=== PATIENT | female | born 2000 | race African-American/Black ===

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

== ENCOUNTER 2019-04-29 16:16 | Emergency (ER) | payer OTHER | END 2019-04-29 17:07 | disposition home or self-care (01) | LOC: BURERS 16:16 | DX: J11.1 Influenza due to unidentified influenza virus with other respiratory manifestations (principal) | CPT/HCPCS: 99281 ==

== ENCOUNTER 2020-01-09 16:15 | Emergency (ER) | payer OTHER ==
[2020-01-09] MEDS ORDERED: Ibuprofen 800 MG TAB ONE (16:47)
[2020-01-10 12:46] LABS: SARS-CoV-2 MS2 Positive; SARS-CoV-2 N Gene Negative; SARS-CoV-2 S Gene Negative; SARS-CoV-2 by NAA Not Detected (NotDetected); SARS-CoV-2 orf1ab Negative
== END 2020-01-09 17:18 | disposition home or self-care (01) ==
LOC: BURERS 16:15
DX: J02.9 Acute pharyngitis, unspecified (principal); Z20.828 Contact with and (suspected) exposure to other viral communicable diseases; M41.9 Scoliosis, unspecified
CPT/HCPCS: 87081; 87430; 87635; 99283; U0003

== ENCOUNTER 2020-08-01 22:03 | Emergency (ER) | payer OTHER ==
[2020-08-01] MEDS ORDERED: Dexamethasone 10 MG/ML VIAL ONE ×2 (22:25→22:26)
[2020-08-01] MEDS ORDERED: Acetaminophen 500 MG TAB ONE (22:25)
[2020-08-01] MEDS ORDERED: Ibuprofen 800 MG TAB ONE (22:25)
[2020-08-01] MEDS ORDERED: cefTRIAXone\\ROCEPHIN 1 GM VIAL ONE (22:26)
[2020-08-01] MEDS ORDERED: Lidocaine 2% PF 5 ML VIAL ONE (22:26)
== END 2020-08-01 22:45 | disposition home or self-care (01) ==
LOC: BURERS 22:03
DX: J02.9 Acute pharyngitis, unspecified (principal)
CPT/HCPCS: 87081; 87430; 96372; 99284; J0696; J1100; J2001